=== PATIENT | female | born 1995 | race Caucasian/White ===

== ENCOUNTER 2021-09-14 14:36 | Outpatient (CLI) | payer BC | END 2021-09-14 14:37 | disposition home or self-care (01) | LOC: CSHLAB 14:36 | PROVIDERS: ATTEND Obstetrics & Gynecology | DX: Z01.812 Encounter for preprocedural laboratory examination (principal); Z20.822 Contact with and (suspected) exposure to COVID-19 | CPT/HCPCS: 84703; 85027; 86850; 86900; 86901; U0003; U0005 ==

== ENCOUNTER 2021-09-19 05:54 | Day surgery (SDC) | payer BC ==
[2021-09-14 15:55] LABS: Hemoglobin 13.3 g/dL (12.0-15.5); Mean Corpuscular HGB CONC 32.7 g/dL (32.0-36.0); Mean Corpuscular Hemoglobin 30.2 pg (27.0-33.0); Mean Corpuscular Volume 92.3 fl (81.6-98.3); Platelet Count 282 10x3/uL (150-450); RBC Distribution Width 12.1 % (11.5-14.5); Red Blood Cell (RBC) Count 4.41 10x6/uL (3.90-5.03)
[2021-09-14 16:24] LABS: BHCG - Serum Negative (NEGATIVE); Pregs Control Background? CLEAR/WHITE (CLR/WHITE); Pregs Control Bar Appear? YES (CONTROL BAR)
[2021-09-15 18:14] LABS: SARS-CoV-2 PCR by NAA Not Detected (NotDetected)
[2021-09-18 12:20] VITALS: BMI 29.0
[2021-09-19] MEDS ORDERED: Gabapentin 300 MG CAP ONE (06:10)
[2021-09-19] MEDS ORDERED: CeleCOXIB 100 MG CAP ONE (06:10)
[2021-09-19] MEDS ORDERED: Lidocaine 1% MPF 2 ML VIAL ONE (06:11)
[2021-09-19] MEDS ORDERED: Famotidine/PF 20 mg/2ml Vial ONE (06:11)
[2021-09-19] MEDS ORDERED: PROPOFOL 20 ML ONE ×2 (06:38→06:40)
[2021-09-19] MEDS ORDERED: Lidocaine 1% PF 5 ML VIAL ONE (06:38)
[2021-09-19] MEDS ORDERED: Ketorolac Tromethamine 30 MG/ML VIAL ONE (06:38)
[2021-09-19] MEDS ORDERED: Dexamethasone 20 MG/5 ML VIAL ONE (06:38)
[2021-09-19] MEDS ORDERED: Ondansetron PF 4 MG/2 ML Vial ONE (06:38)
[2021-09-19] MEDS ORDERED: Midazolam HCl 2 mg/2 ml Vial ONE ×2 (06:38→06:47)
[2021-09-19] MEDS ORDERED: Rocuronium Bromide 10 MG/ML (10ML VIAL) ONE (06:38)
[2021-09-19] MEDS ORDERED: Fentanyl 250 MCG/5 ML VIAL ONE (06:38)
[2021-09-19] MEDS ORDERED: Glycopyrrolate 0.2 MG/ML 5 ML SYRINGE ONE (06:38)
[2021-09-19] MEDS ORDERED: Bupivacaine PF 0.5% 30 ML VIAL ONE (07:09)
[2021-09-19] MEDS ORDERED: EPINEPHrine 1 MG/ML AMP ONE (07:09)
== END 2021-09-19 11:20 | disposition home or self-care (01) ==
LOC: CSHSDC 05:54
PROVIDERS: ATTEND Obstetrics & Gynecology
PROC: 0UT94ZZ Resection of Uterus, Percutaneous Endoscopic Approach (ICD-10-PCS; principal; 2021-09-19)
PROC: 0UT74ZZ Resection of Bilateral Fallopian Tubes, Percutaneous Endoscopic Approach (ICD-10-PCS; principal; 2021-09-19)
DX: N80.0 Endometriosis of uterus (principal); N87.0 Mild cervical dysplasia; N83.8 Other noninflammatory disorders of ovary, fallopian tube and broad ligament; N94.6 Dysmenorrhea, unspecified; Z91.018 Allergy to other foods; Z97.5 Presence of (intrauterine) contraceptive device; Z20.822 Contact with and (suspected) exposure to COVID-19
CPT/HCPCS: 84703; 85027; 86850; 86900; 86901; 88307; J0171; J0690; J1100; J1885; J2250; J2405; J2704; J3010; S0020; S0028; U0003; U0005